=== PATIENT | female | born 1980 | race Caucasian/White ===

== ENCOUNTER 2016-08-24 12:40 | Outpatient (CLI) | payer MEDICAID ==
[2016-08-24 13:52] LABS: ALT (SGPT) 20 U/L (0-55); AST (SGOT) 17 U/L (5-34); Alkaline Phosphatase 84 U/L (40-150); Anion Gap 17 mmol/L (10-20); BUN (Urea Nitrogen) 6 mg/dL (7.0-18.7); Bilirubin, Total 1.5 mg/dL (0.2-1.2); Calc. Creatinine Clearance 0 mL/min (70-130); Calcium 9.1 mg/dL (7.8-10.44); Carbon Dioxide 22 mmol/L (22-29); Chloride 105 mmol/L (98-107); Estimated GFR-MDRD 84; Globulin 2.7 g/dL (2.4-3.5); Protein, Total 6.8 g/dL (6.0-8.3)
[2016-08-24 13:57] LABS: Hematocrit 39.9 % (36.0-47.0); Red Blood Cell (RBC) Count 4.17 mill/uL (4.20-5.40); White Blood Cell (WBC) Count 6.6 thou/uL (4.8-10.8)
[2016-08-24 13:58] LABS: #Lymphocytes 1.7 thou/uL (1.20-3.40); #Neutrophils 4.3 thou/uL (1.40-6.50); %Basophils 0.8 % (0.0-1.0); %Eosinophils 1.8 % (0.0-10.0); %Lymphocytes 25.7 % (21.0-51.0); %Monocytes 5.7 % (0.0-10.0)
[2016-08-24 13:59] LABS: #Basophils 0.1 thou/uL (0.0-0.2); #Eosinphils 0.1 thou/uL (0.0-0.7); #Monocytes 0.4 thou/uL (0.11-0.59)
[2016-08-26 13:16] LABS: %CD4 (Helper/Inducer) 43.9 % (30.8-58.5); Absolute CD4 702 /uL (359-1519); Lymphocytes/Gated Cell Count 1.6 x10E3/uL (0.7-3.1)
== END 2016-08-24 12:41 | disposition home or self-care (01) ==
LOC: NAVSJIPCSP 12:40
PROVIDERS: ATTEND Internal Medicine Infectious Disease
DX: Z21 Asymptomatic human immunodeficiency virus [HIV] infection status (principal)
CPT/HCPCS: 36415; 80053; 85025; 85048; 86361; 86480; 86592; 86706; 86803; 87340; 87536

== ENCOUNTER 2018-06-19 21:23 | Emergency (ER) | payer MEDICARE, MEDICAID ==
[2018-06-19] MEDS ORDERED: Acetaminophen 500 MG TAB ONE (21:46)
== END 2018-06-19 21:52 | disposition home or self-care (01) ==
LOC: NAV ERS 21:23
DX: M54.2 Cervicalgia (principal); F90.9 Attention-deficit hyperactivity disorder, unspecified type; F32.9 Major depressive disorder, single episode, unspecified; F17.210 Nicotine dependence, cigarettes, uncomplicated; Z79.899 Other long term (current) drug therapy
CPT/HCPCS: 99281

== ENCOUNTER 2018-09-06 08:10 | Emergency (ER) | payer MEDICARE, MEDICAID | END 2018-09-06 08:42 | disposition home or self-care (01) | LOC: NAV ERS 08:10 | DX: J34.0 Abscess, furuncle and carbuncle of nose (principal); F90.9 Attention-deficit hyperactivity disorder, unspecified type; F17.210 Nicotine dependence, cigarettes, uncomplicated; Z79.899 Other long term (current) drug therapy | CPT/HCPCS: 99283 ==

== ENCOUNTER 2018-09-26 18:38 | Emergency (ER) | payer MEDICARE, MEDICAID ==
[2018-09-26] MEDS ORDERED: Naproxen 500 MG TAB ONE (19:03)
--- NOTE | 2018-09-26 19:36 | RAD ---
THREE VIEWS RIGHT WRIST: 09/26/18 HISTORY: Pain and swelling. Two puncture sites. FINDINGS: There appears to be subcutaneous emphysema along the ulnar aspect of the radius. No radiopaque foreig n body. There is evidence of soft tissue swelling. Joint spaces are preserved. No fracture or cortical irregularity. IMPRESSION: 1. Subcutaneous air, and swelling. 2. No fracture or radiopaque foreign body. POS: PPP
== END 2018-09-26 19:40 | disposition home or self-care (01) ==
LOC: NAV ERS 18:38
DX: S61.531A Puncture wound without foreign body of right wrist, initial encounter (principal); B20 Human immunodeficiency virus [HIV] disease; F90.9 Attention-deficit hyperactivity disorder, unspecified type; F17.210 Nicotine dependence, cigarettes, uncomplicated; Z79.899 Other long term (current) drug therapy; W22.8XXA Striking against or struck by other objects, initial encounter